=== PATIENT | female | born 1935 | race Caucasian/White ===

== ENCOUNTER → 2017-06-02 | Outpatient (CLI) | payer MEDICARE, OTHER ==
[~2017-06-02] MED LIST: ACETAMINOPHEN-1 EAC1 PO; ALLOPURINOL 30300 M1 PO; ALLOPURINOL 30300 M2 PO; APAP500 PO; ASPIR 8181 MG PO; ASPIRIN EC325 M1 PO; ASPIRIN EC81 M1 PO; ASPIRIN325 PO; CEFTIN 250 MG250 MG PO; CEFTIN500 MG PO; CRESTOR10 MG PO; EMETROL ORAL S118 ML PO; FOLIC ACID 40400 MC1 PO; FUROSEMIDE 40 M40 MG PO; IMDUR 60 MG TAB60 M1 PO; IRON PO; K-DUR 20 MEQ T20 MEQ PO; LANSOPRAZOLE30 MG PO; LASIX 40 MG TAB40 M2 PO; LASIX 40 MG TAB40 MG PO; MACROBID 100 M100 M1 PO; MACROBID 100 M100 M2 PO; MACROBID 100 M100 M3 PO; MECLIZINE HCL12.5 MG PO; NITRO-TIME2.5 MG PO; NITROGLYCERIN0.3 MG SL; OXYCODONE HCL 55 MG PO; PERCOCET 5-3251 EACH PO; PLAVIX 75 MG TA75 M1 PO; PLAVIX 75 MG TA75 MG PO; POTASSIUM20 PO; PREVACID 30MG C30 M1 PO; PREVACID30 MG PO; PROLOPRIM100 MG PO; SENNA PO; TOPROL XL100 MG PO; TOPROL XL50 MG PO; TRAMADOL 50 MG50 MG PO; TRANSDERM-SCO1 PATC1 TD; VALIUM5 MG PO; XARELTO15 MG PO; ZESTRIL5 MG PO; ZOFRAN4 MG PO; ZYLOPRIM300 MG PO
== END ==
LOC: M.RAD 16:44
DX: M43.8X4 Other specified deforming dorsopathies, thoracic region (principal); I70.0 Atherosclerosis of aorta; N39.0 Urinary tract infection, site not specified; R07.81 Pleurodynia; M54.89 Other dorsalgia; Z98.890 Other specified postprocedural states

== ENCOUNTER 2018-05-02 13:43 | Inpatient (IN) | payer MEDICARE, OTHER ==
[~2018-05-02] VITALS: Ht 160 cm; Wt 61.7 kg
[~2018-05-02 13:43] MED LIST changes: -FUROSEMIDE 40 M40 MG PO
[2018-05-02 13:52] VITALS: BP 165/80
[2018-05-02] MEDS ORDERED: AMOXICILLIN 50500 MG PO (14:03)
[2018-05-02 14:23] LABS: ABSOLUTE EOSINOPHILS 0.2 thou/uL (0.0-0.7); ABSOLUTE LYMPHOCYTES 1.4 thou/uL (0.8-5.3); ABSOLUTE NEUTROPHILS 4.7 thou/uL (1.6-8.1); BASOPHILS 0.4 %; EOSINOPHILS 3.3 %; HEMATOCRIT 29.4 % (37.0-47.0); HEMOGLOBIN 9.7 gm/dL (12.0-15.0); LYMPHOCYTES 19.2 %; MCV 93.9 fL (80.0-100.0); MPV 8.8 fl. (7.2-11.1); NUCLEATED RBCS 0 /100WBC; PLATELET COUNT* 276 thou/uL (150-400); POLYS 64.1 %; RBC 3.13 mil/uL (4.20-5.00); RDW-CV 13.9 % (10.5-14.5); WBC 7.4 thou/uL (4.0-11.0)
[2018-05-02 14:33] LABS: ANION GAP 12 mmol/L (7-16); BUN 17 mg/dL (7-18); CALCIUM 8.8 mg/dL (8.5-10.1); CHLORIDE 102 mmol/L (98-107); CO2 24 mmol/L (21-32); CREATININE 1.2 mg/dL (0.6-1.3); GLUCOSE 105 mg/dL (70-99); POTASSIUM 3.4 mmol/L (3.5-5.1); SODIUM 138 mmol/L (136-145)
[2018-05-02 14:40] LABS: ALBUMIN 2.9 g/dL (3.4-5.0); ALKALINE PHOSPHATASE 113 U/L (46-116); SGOT 19 U/L (15-37); SGPT 11 U/L (30-65); TOTAL BILIRUBIN 0.4 mg/dL (<0.1-1.0); TROPONIN-I LEVEL <0.06 ng/mL (<0.06)
[2018-05-02 15:41] LABS: APTT 41.8 Seconds (25.0-31.3); INR 1.2; PROTIME 12.7 Seconds (9.20-11.50)
[2018-05-02 15:47] LABS: BE -2.5 mmol/L (-2 to +3); HCO3 19.9 mmol/L (22.0-26.0); PCO2 27.4 mmHg (35.0-45.0); PO2 67.1 mmHg (75.0-100.0); pH 7.478 (7.340-7.450)
[2018-05-02 16:44] LABS: URINE BILIRUBIN NEGATIVE (Negative); URINE BLOOD 3+ (Negative); URINE CLARITY SL CLOUDY; URINE COLOR STRAW; URINE GLUCOSE-RANDOM NEGATIVE (Negative); URINE KETONES NEGATIVE (Negative); URINE NITRITE-REFLEX NEGATIVE (Negative); URINE PROTEIN 2+ (Negative); URINE SPECIFIC GRAVITY >= 1.030 (1.005-1.030); URINE UROBILINOGEN 0.2 E.U./dl (0.2-1.0)
[2018-05-02 16:46] LABS: URINE LEUKOCYTES-REFLEX 2+ (Negative)
[2018-05-02 17:00] VITALS: BP 166/71
[2018-05-02 17:06] VITALS: BP 155/71
[2018-05-02 17:15] LABS: BACTERIA-REFLEX >30 Many /HPF (None Seen); CASTS None Seen /LPF (None Seen); CRYSTALS None Seen /LPF (None Seen); SQUAMOUS NONE SEEN /LPF (0-3); URINE RBC >20 Many /HPF (0-2); URINE WBC-REFLEX >25 Many /HPF (0-5)
[2018-05-02 20:00] VITALS: BP 147/76
--- NOTE | 2018-05-02 20:00 | NUR ---
PT ADMITED TO TELE UNDER THE CARE OF DR MONTANO. PT IS A&O X4 CALM AND COOPERATIVE. PT DENIES C/O PAIN OR DISTRESS VSS AND TRACING ST ON THE MONITOR. PT ORIENTED TO UNIT AND SERVICES, FOOD AND DRINK OFFERED. URINALRY CATHETER INSERTED PER DR MONTANO'S ORDERS FOR IMMOBILITY. 16F WITH A 10 CC BULB. NURSING ADMISSION ASSESSMENT COMPLETED AND DOCUMENTED. HOURLY ROUNDS STARTED, NURSING WILL CONTINUE TO MONITOR.
[2018-05-03] VITALS: BP 127/62
[2018-05-03 04:00] VITALS: BP 125/78
--- NOTE | 2018-05-03 05:00 | NUR ---
PATIENT PARTIALLY PROGRESSING TOWARDS GOALS: PATIENT ABLE TO SIT ON SIDE OF BED FOR PART OF SHIFT WITH MINIMAL SHORTNESS OF AIR. PATIENT REMAINS ON ROOM AIR WITH SATS >92%. PATIENT DENIES PAIN AND DISCOMFORT. EDWARDS IN PLACE TO DD. HOURLY ROUNDING OBSERVED. CALL LIGHT WITHIN REACH
[2018-05-03 09:30] VITALS: BP 136/57
--- NOTE | 2018-05-03 11:42 | NUR ---
Pt is A&O. Resides at home alone. Pt continues to prepare her own meals. Pt's neighbor cleans her home every 2 weeks and Pt's sons provide transportation to appts and to run errands. Pt uses a walker while in the house and a cane in the community. Pt also has a transport chair that she reports using more frequently. No home o2. Hx of HH, but does not recall the name of the agency. No hx of skilled. Pt's goal is [place]. No needs anticipated. Following for disposition.
[2018-05-03 12:00] VITALS: BP 153/108
[2018-05-03 13:36] LABS: CHOLESTEROL 194 mg/dL (<200); HDL CHOLESTEROL 50 mg/dL (>40); LDL CHOLESTEROL 130 mg/dL (<100); SERUM ASSESSMENT Clear; TC:HDL 3.9 Ratio (Not establshd); TRIGLYCERIDE 70 mg/dL (<150); VLDL 14 mg/dL (<40)
[2018-05-03 13:53] LABS: CALCIUM 8.9 mg/dL (8.5-10.1); CREATININE 1.3 mg/dL (0.6-1.3); POTASSIUM 3.7 mmol/L (3.5-5.1)
--- NOTE | 2018-05-03 14:13 | 2DMMODE ---
[place] [address] 2 D/M-MODE ECHOCARDIOGRAM Name: COURTNEY NYE Room: [address] IN [facility]#: [id number] Admission: 05/02/18 Attend Phys: Jan Sorto, Discharge: Date of : 31 Date of Service: 05/03/18 1412 Report #: [id number] THIS REPORT FOR: //name// APPROVED REPORT Study performed: 05/03/2018 10:36:39 EXAM: Comprehensive 2D, Doppler, and color-flow Echocardiogram Patient Location: In-Patient Room #: [facility] Status: routine BSA: 1.63 HR: 83 bpm BP: 125/78 mmHg Rhythm: NSR Other Information Study Quality: Good Indications Dyspnea 2D Dimensions IVSd: 10.22 (7-11mm) LVOT Diam: 18.68 (18-24mm) LVDd: 43.22 mm PWd: 8.77 (7-11mm) Ascending Ao: 33.06 (22-36mm) LVDs: 33.73 (25-40mm) Aortic Root: 28.27 mm Volumes Left Atrial Volume (Systole) LA ESV Index: 29.30 mL/m2 Aortic Valve AoV Peak Bebeto.: 1.11 m/s AO Peak Gr.: 4.92 mmHg LVOT Max P.96 mmHg AO Mean Gr.: 2.91 mmHg LVOT Mean P.95 mmHg LVOT Max V: 0.70 m/s AO V2 VTI: 25.14 cm LVOT Mean V: 0.45 m/s HOLLIS (VTI): 1.68 cm2 LVOT V1 VTI: 15.41 cm Mitral Valve E/A Ratio: 1.64 MV Decel. Time: 145.04 ms MV E Max Bebeto.: 1.09 m/[place] [address] 2 D/M-MODE ECHOCARDIOGRAM Name: COURTNEY NYE Room: [address] IN [facility]#: [id number] Admission: 05/02/18 Attend Phys: Jan Sorto, Discharge: Date of : 31 Date of Service: 05/03/18 1412 Report #: [id number] MV PHT: 42.06 ms MVA (PHT): 5.23 cm2 TDI E/Lateral E': 13.63 E/Medial E': 18.17 Medial E' Bebeto.: 0.06 m/s Lateral E' Bebeto.: 0.08 m/s Pulmonary Valve PV Peak Bebeto.: 0.64 m/s PV Peak Gr.: 1.65 mmHg Tricuspid Valve RAP Estimate: 5.00 mmHg TR Peak Gr.: 32.44 mmHg RVSP: 37.00 mmHg PA Pressure: 37.00 mmHg Left Ventricle The left ventricle is normal size. There is global hypokinesis. There is normal left ventricular wall thickness. Left ventricular systolic function is mild to moderately decreased. LVEF is 35-40%. Severe diastolic dysfunction is present (restrictive filling). Right Ventricle The right ventricle is normal size. The right ventricular systolic function is normal. Atria Left atrium is mildly dilated. Right atrium is mildly dilated. Aortic Valve The aortic valve is normal in structure. Trace aortic regurgitation. There is no aortic valvular stenosis. Mitral Valve The mitral valve is normal in structure. Moderate mitral regurgitation. No evidence of mitral valve stenosis. Tricuspid Valve The tricuspid valve is normal in structure. Mild tricuspid regurgitation. Mild pulmonary hypertension. Pulmonic Valve The pulmonary valve is normal in structure. Mild [place] [address] 2 D/M-MODE ECHOCARDIOGRAM Name: MELANIE MOLINACOURTNEY Micheal Room: [address]#: [id number] Admission: 05/02/18 Attend Phys: Jan Sorto, Discharge: Date of : 31 Date of Service: 05/03/18 1412 Report #: [id number] Great Vessels The aortic root is normal in size. IVC is normal in size and collapses >50% with inspiration. Pericardium There is no pericardial effusion. <Conclusion> The left ventricle is normal size. There is normal left ventricular wall thickness. Left ventricular systolic function is mild to moderately decreased. LVEF is 35-40%. Severe diastolic dysfunction is present (restrictive filling). Left atrium is mildly dilated. Right atrium is mildly dilated. Mild tricuspid regurgitation. Mild pulmonary hypertension. IVC is normal in size and collapses >50% with inspiration. <ELECTRONICALLY SIGNED> By: Velasquez Bhagat MD, FACC 05/03/18 141 11 11 Velasquez Bhagat MD, FACC /INF
--- NOTE | 2018-05-03 16:19 | EKG ---
[place] [address] ELECTROCARDIOGRAM REPORT Name: COURTNEY NYE Room: [address] ADM IN [facility]#: [id number] Admission: 05/02/18 Attend Phys: Jan Sorto MD Discharge: Date of : 31 Report #: [id number] THIS REPORT FOR: //name// 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 : 1935 Requested By: Alicia Todd Order Number: [id number] MD: Velasquez Bhagat Measurements Intervals [place] Rate: 88 P: 51 MS: 52 QRS: 69 QRSD: 99 T: 94 QT: 396 QTc: 480 Interpretive Statements Sinus rhythm Short MS interval Probable left atrial enlargement Borderline low voltage, extremity leads Nonspecific repol abnormality, diffuse leads Compared to ECG 06/15/2016 16:51:22 Short MS interval now present Ventricular premature complex(es) no longer present Electronically Signed On 05-03-2018 16:19:24 BASEBALL CLUB MANAGER by Velasquez Bhagat [email or web address] <ELECTRONICALLY SIGNED> By: Velasquez Bhagat MD, FACC 05/03/18 1619 1412 1412 Velasquez Bhagat MD, FACC /EPI
[2018-05-03 16:39] VITALS: BP 140/71
--- NOTE | 2018-05-03 17:36 | CON ---
[address] [address] CONSULTATION Name: COURTNEY NYE Room: [address] [facility]#: [id number] Admission: 05/02/18 Attend Phys: Jan Sorto MD Discharge: Date of : 31 Report #: [id number] THIS REPORT FOR: //name// CC: Jim Sorto INDICATION: Acute on chronic combined heart failure. HISTORY OF PRESENT ILLNESS: The patient is an 82-year-old white female status post coronary artery bypass grafting in 2004. She had subsequent percutaneous coronary intervention in 2006. She has preserved left ventricular systolic function with an EF based on echo of approximately 45%-50%. She was admitted to the hospital with progressive shortness of breath. Her NT-proBNP is elevated consistent with acute heart failure. Chest x-ray suggests mild pulmonary edema. She has swelling of her left lower extremity, which was the leg used for her bypass surgery. She denies orthopnea. She does have progressive dyspnea on exertion. She has occasional episodes of chest discomfort. Her troponins here have all been unremarkable. EKG shows sinus rhythm with nonspecific ST-segment depression in the anterolateral leads. No ST elevation identified. Telemetry shows occasional episodes of nonsustained ventricular tachycardia that are asymptomatic. She is without other cardiac complaint at this time. PAST MEDICAL HISTORY: 1. Coronary artery disease. 2. Hypertension. 3. Hyperlipidemia with statin intolerance, although she is tolerating Crestor once weekly. 4. GERD. 5. History of cerebrovascular accident remotely. 6. History of pulmonary embolus approximately 2 years ago. PAST SURGICAL HISTORY: 1. Appendectomy. 2. Tonsillectomy. 3. Childbirth x 6. 4. Coronary artery bypass grafting x 3 on 03/2005. 5. Percutaneous coronary intervention in 03/2005. 6. Percutaneous coronary intervention in 2006. 7. Dental extraction. 8. Cholecystectomy. 9. Bilateral lens implant, cataract removal. HOME MEDICATIONS: Plavix 75 mg daily, Toprol-XL 125 mg at bedtime, Nitrostat p.r.n., Prevacid 30 mg daily, furosemide 40 mg p.o. daily, allopurinol 300 mg daily, aspirin 325 mg daily, lisinopril 5 mg daily, amoxicillin 500 [place] [address] CONSULTATION Name: COURTNEY NYE Room: [address]#: [id number] Admission: 05/02/18 Attend Phys: Jan Sorto MD Discharge: Date of : 31 Report #: [id number] tablet daily, Imdur 60 mg b.i.d., Xarelto 20 mg daily. ALLERGIES: VICODIN, LEVOFLOXACIN, MORPHINE, SULFAS, MEDICAL INTOLERANCE TO STATINS. FAMILY HISTORY: Noncontributory. SOCIAL HISTORY: The patient does not smoke. She does not drink alcohol. REVIEW OF SYSTEMS: Noncontributory. PHYSICAL EXAMINATION: VITAL SIGNS: Blood pressure 136/57, pulse 72 and regular. GENERAL: This is a thin elderly white female in no distress. Mood and affect appropriate. HEENT: The patient is wearing glasses. Extraocular muscles intact. Mucous membranes are moist. NECK: Shows jugular venous distention. CHEST: Reveals rales bilaterally. CARDIOVASCULAR: Reveals a regular rhythm without gallop or murmur. ABDOMEN: Reveals normal bowel sounds present. EXTREMITIES: Show mild edema of the left lower extremity. Right lower extremity is free of edema. SKIN: Warm and dry. IMPRESSION AND RECOMMENDATION: 1. Acute on chronic combined heart failure. The patient is improving with IV Lasix. Would continue b.i.d. Lasix at this time and follow labs and I's and O's carefully. She may need a larger dose of Lasix when she is discharged. She does report not paying attention to salt restriction. 2. Coronary artery disease, presently stable. She is not having any angina. 3. Remote history of pulmonary embolus for which she is taking Xarelto. She has completed a course of novel anticoagulant for pulmonary embolus. I do not believe she needs to continue this. 4. Remote history of cerebrovascular accident. The patient was placed on Plavix at that time. She continues on Plavix. She has not had recurrent cerebrovascular accident. 5. Hypertension, adequately controlled on current regimen. 6. Angina. Continue p.r.n. nitrates. 7. Hyperlipidemia. The patient is tolerating once weekly Crestor. We will check fasting lipid profile [place] [address] CONSULTATION Name: COURTNEY NYE Room: [address] [place] [facility]#: [id number] Admission: 05/02/18 Attend Phys: Jan Sorto MD Discharge: Date of : 31 Report #: [id number] 8. Nonsustained ventricular tachycardia. No specific treatment at this time. We will continue to observe. <ELECTRONICALLY SIGNED> By: Velasquez Bhagat MD, FACC 05/03/18 1736 1256 [id number] Bhagat MD, FACC /nt
--- NOTE | 2018-05-03 18:36 | NUR ---
ASSUMED PT CARE AT 0700 PT IS ALERT AND ORIENTED X 4 PT DENIES PAIN INCLUDING CHEST PAIN PT DENIES SOA, PT IS SR ON THE MONITOR, PT SON INQUIRING ABOUT NITRO TABS SON WANTS TO GIVE PT OWN SUPPLY WITHOUT ORDER THIS NURSE EDUCATED PT AND SON ON HOSPITAL POLICY AND THAT THIS NURSE WILL CALL PHYSICIAN FOR ORDER PT SON BECAME UPSET THIS NURSE REEDUCATED THAT PHYSICIAN WILL BE CALLED FOR ORDER FOR NITRO SON STATES UNDERSTANDING, PT IS UP WITH ASSIST X PT IS A FALL RISK BED ALARM IS ON, PT HAS EDWARDS CRITICAL I&0 PT ON 2000ML FLUID RESTRICTION, PT IV REPLACED, PT C/O ARM DISCOMFORT FROM MULTIPLE STICKS PAGED PHYSICIAN FOR TYLENOL AWAITING CALL BACK GAVE PT SCHEDULED ASPIRIN, WILL CONTINUE TO MONITOR
[2018-05-03 20:15] VITALS: BP 153/83
[2018-05-04] VITALS: BP 161/79
[2018-05-04 04:00] VITALS: BP 149/73
--- NOTE | 2018-05-04 05:16 | NUR ---
PT CARE ASSUMED AT 1930. SAT MAINTAINED IN 1L NC. ALERT AND ORIENTED X4. CALL LIGHT WITHIN REACH AND BED IN LOW POSITIION. PT STATED CAN'T SLEEP, LOT GOING ON MY MIND. MEDICATION GIVEN PER EMAR. REFUSED INSULIN, EXPLAINED ABOUT THE NEED OF IT BUT WANTS TO TALK WITH TODAY ABOUT IT. HOURLY ROUNDING DONE FOR PT SAFETY.
[2018-05-04 05:30] LABS: HEMOGLOBIN 9.5 gm/dL (12.0-15.0); MCH 31.7 pg (26.0-34.0); MCV 93.2 fL (80.0-100.0); RBC 3.01 mil/uL (4.20-5.00); RDW-CV 13.8 % (10.5-14.5)
[2018-05-04 05:43] LABS: ANION GAP 8 mmol/L (7-16); BUN 25 mg/dL (7-18); CALCIUM 8.8 mg/dL (8.5-10.1); CHLORIDE 98 mmol/L (98-107); CO2 26 mmol/L (21-32); CREATININE 1.4 mg/dL (0.6-1.3); GLUCOSE 147 mg/dL (70-99); MAGNESIUM 1.9 mg/dL (1.8-2.4); SODIUM 132 mmol/L (136-145); TROPONIN-I LEVEL <0.06 ng/mL (<0.06)
[2018-05-04 05:44] LABS: POTASSIUM 4.7 mmol/L (3.5-5.1)
[2018-05-04 10:00] VITALS: BP 154/85
[2018-05-04 12:17] VITALS: BP 147/69
--- NOTE | 2018-05-04 13:48 | NUR ---
ASSUMED PT CARE AT 0700 PT IS ALERT AND ORIENTED X 4 PT DENIES PAIN OR SOA ON 1L/NC, PT IS SR ON THE MONITOR, PT IS UP WITH ASSIST X 1 TO CHAIR, PT IV STERIODS DECREASED PT WILL START PO ANTIBIOTICS TOMORROW GAVE LST DOSES OF IV ANTIBIOTICS, PT SPOKE WITH CARDIOLOGY REGARDING MEDICATION CHANGES HAS BETTER UNDERSTANDING PURPOSE MEDS WERE CHANGED, PT SPOKE WITH HOSPITALSIT REGARDING INSULIN WHICH WILL BE GIVEN FOR BLOOD SUGAR ABOVE 280, PT WORKED WITH PHYSICIAL THERAPY [facility], WILL CONTINUE TO MONITOR
[2018-05-04 16:07] VITALS: BP 130/56
[2018-05-04 20:20] VITALS: BP 118/76
[2018-05-05] VITALS: BP 105/40; BP 146/68
[2018-05-05 04:00] VITALS: BP 133/61
--- NOTE | 2018-05-05 05:07 | NUR ---
PT CARE ASSUMED AT 1930. SAT MAINTAINED IN 1L NC. ALERT AND ORIENTED X4. CALL LIGHT WITHIN REACH AND BED IN LOW POSITION. DENIES ANY SOB AND CHEST PAIN. HOURLY ROUNDING DONE FOR PT SAFETY.
[2018-05-05 05:43] LABS: CALCIUM 8.2 mg/dL (8.5-10.1); CREATININE 1.4 mg/dL (0.6-1.3); POTASSIUM 4.8 mmol/L (3.5-5.1)
[2018-05-05 08:00] VITALS: BP 164/80
[2018-05-05 12:00] VITALS: BP 177/82
[2018-05-05] MEDS ORDERED: NITROGLYCERIN0.4 MG SUBLING (12:18)
[2018-05-05] MEDS ORDERED: LASIX 40 MG TAB40 M1 PO (12:18)
[2018-05-05] MEDS ORDERED: PREDNISONE 20 M20 MG PO (12:18)
[2018-05-05] MEDS ORDERED: CEFDINIR300 MG PO (12:18)
[2018-05-05] MEDS ORDERED: ASPIR 8181 MG PO (12:18)
[2018-05-05] MEDS ORDERED: IMDUR 60 MG TAB60 M1 PO (12:18)
--- NOTE | 2018-05-05 13:33 | NUR ---
Pt discharging to home today with [facility]. Faxed dc orders.
--- NOTE | 2018-05-05 14:26 | NUR ---
RE: CHF MEDICATION EDUCATION. MET WITH PT TO DISCUSS HEART FAILURE MEDICATION. REVIEW FOCUSED ON LISINOPRIL, FUROSEMIDE AND ISOSORBIDE DINITRATE. REVIEWED RATIONALE FOR THERAPY AND IMPORTANCE OF COMPLIANCE OF PRESCRIBED REGIMEN. DISCUSSED SIDE EFFECTS AND MANAGEMENT STRATEGIES. LEFT MEDICATION INFORMATION SHEET WITH PATIENT. PROVIDED PHARMACY CONTACT INFORMATION FOR ANY FURTHER QUESTIONS OR ISSUES. THANK YOU.
[2018-05-05] MEDS ORDERED: FUROSEMIDE 40 M40 MG PO (14:52)
--- NOTE | 2018-05-05 15:52 | NUR ---
CALLED PTS FORENSIC INVESTIGATOR [facility] . THEY ARE UNABLE TO SET AN APPT TILL MAY. CALLED DR COWAN PTS PRIMARY CARE DOCTOR TO [facility] APPT. TC WHEN TIRE BUSTER ANSW AND FORWARDED ME TO
[2018-05-05 17:00] VITALS: BP 165/73
--- NOTE | 2018-05-05 17:05 | NUR ---
ASSUMED CARE OF PT THIS AM ASESSED AND DOCUMENTED. PT D/C'D TO HOME. ALL CONSULTS OK WITH D/C. EDUCATION GIVEN RE FOLLOW-UPS, MEDICATIONS AND DRS ORDERS. DR REINA OFFICE RET CALL PT HAS AN APPT Wednesday. SCRIPTS GIVEN. IV AND CARDIAC MONITER D/C'D. ALL BELONGINGS PACKED UP AND LEFT WITH PT ACCOMPANIED BY SON AND STAFF.
== END 2018-05-05 15:20 | disposition home health service (06) | DRG 291 ==
LOC: M.ERS 13:43 → M.TBA-ER 15:38 → M.2W 15:38
PROVIDERS: Internal Medicine; Internal Medicine Cardiovascular Disease; Personal Emergency Response Attendant; ADMIT Internal Medicine
DX: I11.0 Hypertensive heart disease with heart failure (principal); J18.9 Pneumonia, unspecified organism; I47.2 Ventricular tachycardia; I50.43 Acute on chronic combined systolic (congestive) and diastolic (congestive) heart failure; I25.10 Atherosclerotic heart disease of native coronary artery without angina pectoris; K21.9 Gastro-esophageal reflux disease without esophagitis; E78.5 Hyperlipidemia, unspecified; Z66 Do not resuscitate; Z90.49 Acquired absence of other specified parts of digestive tract; Z95.1 Presence of aortocoronary bypass graft; I25.2 Old myocardial infarction; Z95.5 Presence of coronary angioplasty implant and graft; Z98.42 Cataract extraction status, left eye; Z98.41 Cataract extraction status, right eye; Z86.73 Personal history of transient ischemic attack (TIA), and cerebral infarction without residual deficits; Z88.6 Allergy status to analgesic agent; Z88.1 Allergy status to other antibiotic agents; Z88.2 Allergy status to sulfonamides; Z86.711 Personal history of pulmonary embolism; Z98.818 Other dental procedure status; Z79.82 Long term (current) use of aspirin; Z79.899 Other long term (current) drug therapy

== ENCOUNTER 2018-05-19 11:31 | Inpatient (IN) | payer MEDICARE, OTHER ==
[~2018-05-19] VITALS: Ht 154.9 cm; Wt 61.7 kg
[~2018-05-19 11:31] MED LIST changes: -ALLOPURINOL 30300 M2 PO; +AMOXICILLIN 50500 MG PO; +CEFDINIR300 MG PO; +FUROSEMIDE 40 M40 MG PO; +LASIX 40 MG TAB40 M1 PO; +NITROGLYCERIN0.4 MG SUBLING; +PREDNISONE 20 M20 MG PO
[2018-05-19 11:40] VITALS: BP 132/50
[2018-05-19 12:00] LABS: ABSOLUTE EOSINOPHILS 0.1 thou/uL (0.0-0.7); ABSOLUTE MONOCYTES 1.2 thou/uL (0.0-1.2); ABSOLUTE NEUTROPHILS 6.2 thou/uL (1.6-8.1); BASOPHILS 0.4 %; EOSINOPHILS 0.9 %; HEMATOCRIT 31.8 % (37.0-47.0); HEMOGLOBIN 10.7 gm/dL (12.0-15.0); LYMPHOCYTES 11.5 %; MCH 30.8 pg (26.0-34.0); MCHC 33.7 g/dL (28.0-37.0); MCV 91.3 fL (80.0-100.0); MONOCYTES 14.2 %; NUCLEATED RBCS 0 /100WBC; PLATELET COUNT* 195 thou/uL (150-400); RBC 3.48 mil/uL (4.20-5.00); RDW-CV 14.4 % (10.5-14.5); WBC 8.5 thou/uL (4.0-11.0)
[2018-05-19 12:06] LABS: ANION GAP 11 mmol/L (7-16); BUN 57 mg/dL (7-18); CHLORIDE 91 mmol/L (98-107); CO2 27 mmol/L (21-32); CREATININE 2.2 mg/dL (0.6-1.3); GLUCOSE 154 mg/dL (70-99); SODIUM 129 mmol/L (136-145)
[2018-05-19 12:14] LABS: APTT 26.2 Seconds (25.0-31.3)
[2018-05-19 12:18] LABS: ALBUMIN 3.1 g/dL (3.4-5.0); ALKALINE PHOSPHATASE 80 U/L (46-116); NT-PRO BRAIN NAT PEPTIDE 1460 pg/mL (<300); SGOT 18 U/L (15-37); SGPT 19 U/L (30-65); TOTAL BILIRUBIN 0.4 mg/dL (<0.1-1.0); TOTAL PROTEIN 6.7 g/dL (6.4-8.2); TROPONIN-I LEVEL <0.06 ng/mL (<0.06)
[2018-05-19 14:45] VITALS: BP 99/42
[2018-05-19 16:00] VITALS: BP 99/39
[2018-05-19 20:20] VITALS: BP 110/40
[2018-05-20] VITALS (7 sets, daily range): BP systolic 98–121; BP diastolic 39–47
[2018-05-20 01:12] LABS: URINE BILIRUBIN NEGATIVE (Negative); URINE BLOOD NEGATIVE (Negative); URINE CLARITY CLEAR; URINE COLOR YELLOW; URINE GLUCOSE-RANDOM NEGATIVE (Negative); URINE KETONES NEGATIVE (Negative); URINE NITRITE-REFLEX NEGATIVE (Negative); URINE PROTEIN NEGATIVE (Negative); URINE UROBILINOGEN 0.2 E.U./dl (0.2-1.0)
[2018-05-20 01:15] LABS: URINE LEUKOCYTES-REFLEX 3+ (Negative)
[2018-05-20 01:25] LABS: BACTERIA-REFLEX 1-9 Few /HPF (None Seen); CRYSTALS None Seen /LPF (None Seen); HYALINE CASTS 0-3 Few /LPF (None Seen); SQUAMOUS >10 Many /LPF (0-3); TRANSITIONAL EPITHEL CELL 4-10 Moderate /LPF (None Seen); URINE RBC None Seen /HPF (0-2); URINE WBC-REFLEX >25 Many /HPF (0-5); WBC CLUMPS Few (None Seen)
[2018-05-20 04:52] LABS: ABSOLUTE EOSINOPHILS 0.1 thou/uL (0.0-0.7); ABSOLUTE LYMPHOCYTES 1.5 thou/uL (0.8-5.3); ABSOLUTE MONOCYTES 1.3 thou/uL (0.0-1.2); ABSOLUTE NEUTROPHILS 5.4 thou/uL (1.6-8.1); BASOPHILS 0.4 %; EOSINOPHILS 1.4 %; HEMATOCRIT 26.3 % (37.0-47.0); HEMOGLOBIN 9.2 gm/dL (12.0-15.0); LYMPHOCYTES 17.6 %; MCH 31.9 pg (26.0-34.0); MCV 91.1 fL (80.0-100.0); MONOCYTES 15.9 %; MPV 8.9 fl. (7.2-11.1); NUCLEATED RBCS 0 /100WBC; PLATELET COUNT* 145 thou/uL (150-400); POLYS 64.7 %; RBC 2.89 mil/uL (4.20-5.00); RDW-CV 14.4 % (10.5-14.5); WBC 8.3 thou/uL (4.0-11.0)
[2018-05-20 05:09] LABS: CALCIUM 8.3 mg/dL (8.5-10.1); CREATININE 2.1 mg/dL (0.6-1.3); MAGNESIUM 2.3 mg/dL (1.8-2.4); POTASSIUM 4.5 mmol/L (3.5-5.1)
--- NOTE | 2018-05-20 14:51 | EKG ---
[place] [address] ELECTROCARDIOGRAM REPORT Name: COURTNEY NYE Room: [address] ADM IN [facility]#: [id number] Admission: 05/19/18 Attend Phys: Abdon Dye MD Discharge: Date of : 31 Report #: [id number] THIS REPORT FOR: //name// [facility] ED Test Date: 2018-05-19 Test Time: 11:44:52 Pat Name: COURTNEY MOLINA Department: Room: [facility] Gender: F Roll Capper: Trevon FABIAN : 1935 Requested By: Moiz Ford Order Number: [id number] MD: Jared Munguia Measurements Intervals [place] Rate: 69 P: 78 AK: 176 QRS: 46 QRSD: 117 T: 84 QT: 386 QTc: 414 Interpretive Statements Sinus rhythm Ventricular premature complex Nonspecific intraventricular conduction delay Nonspecific repol abnormality, lateral leads Compared to ECG 05/02/2018 14:12:27 Ventricular premature complex(es) now present Intraventricular conduction delay now present Short [place] interval no longer present Electronically Signed On 05-20-2018 14:51:34 IMPORT EXPORT CLERK by Jared Munguia [email or web address] <ELECTRONICALLY SIGNED> By: Jared Munguia MD, FACC 05/20/18 1451 1144 1144 Jared Munguia MD, FACC /EPI
[2018-05-21] VITALS: BP 113/40
[2018-05-21 04:00] VITALS: BP 118/39
[2018-05-21 05:24] LABS: ABSOLUTE BASOPHILS 0.1 thou/uL (0.0-0.2); ABSOLUTE EOSINOPHILS 0.2 thou/uL (0.0-0.7); ABSOLUTE LYMPHOCYTES 1.5 thou/uL (0.8-5.3); ABSOLUTE MONOCYTES 1.2 thou/uL (0.0-1.2); ABSOLUTE NEUTROPHILS 4.2 thou/uL (1.6-8.1); BASOPHILS 0.8 %; EOSINOPHILS 2.2 %; HEMATOCRIT 28.1 % (37.0-47.0); HEMOGLOBIN 9.7 gm/dL (12.0-15.0); MCH 31.9 pg (26.0-34.0); MCHC 34.5 g/dL (28.0-37.0); MCV 92.5 fL (80.0-100.0); MONOCYTES 16.8 %; MPV 9.7 fl. (7.2-11.1); NUCLEATED RBCS 0 /100WBC; PLATELET COUNT* 140 thou/uL (150-400); POLYS 59.2 %; RBC 3.04 mil/uL (4.20-5.00); RDW-CV 14.4 % (10.5-14.5); WBC 7.1 thou/uL (4.0-11.0)
[2018-05-21 05:40] LABS: CALCIUM 8.4 mg/dL (8.5-10.1); POTASSIUM 4.5 mmol/L (3.5-5.1)
[2018-05-21 07:50] VITALS: BP 93/41
[2018-05-21 12:00] VITALS: BP 123/48
[2018-05-21 16:00] VITALS: BP 120/62
[2018-05-21 20:00] VITALS: BP 118/48
[2018-05-22] VITALS: BP 122/48
[2018-05-22 04:00] VITALS: BP 110/46
[2018-05-22 08:00] VITALS: BP 109/45
[2018-05-22 19:40] VITALS: BP 147/53
[2018-05-23 00:01] VITALS: BP 126/46
[2018-05-23 04:34] VITALS: BP 122/57
[2018-05-23 05:27] LABS: ABSOLUTE EOSINOPHILS 0.2 thou/uL (0.0-0.7); ABSOLUTE LYMPHOCYTES 1.4 thou/uL (0.8-5.3); ABSOLUTE MONOCYTES 0.7 thou/uL (0.0-1.2); ABSOLUTE NEUTROPHILS 3.3 thou/uL (1.6-8.1); BASOPHILS 0.8 %; EOSINOPHILS 3.9 %; HEMATOCRIT 25.9 % (37.0-47.0); HEMOGLOBIN 9.1 gm/dL (12.0-15.0); LYMPHOCYTES 24.1 %; MCH 32.5 pg (26.0-34.0); MCHC 35.2 g/dL (28.0-37.0); MCV 92.3 fL (80.0-100.0); MONOCYTES 13.2 %; MPV 8.8 fl. (7.2-11.1); NUCLEATED RBCS 0 /100WBC; PLATELET COUNT* 142 thou/uL (150-400); RBC 2.81 mil/uL (4.20-5.00); RDW-CV 14.5 % (10.5-14.5); WBC 5.7 thou/uL (4.0-11.0)
[2018-05-23 06:24] LABS: CALCIUM 8.4 mg/dL (8.5-10.1); CREATININE 1.7 mg/dL (0.6-1.3); POTASSIUM 4.5 mmol/L (3.5-5.1)
[2018-05-23 07:55] VITALS: BP 123/49
[2018-05-23 11:13] VITALS: BP 141/56
[2018-05-23 15:32] VITALS: BP 137/59
[2018-05-23 20:00] VITALS: BP 146/62
[2018-05-24] VITALS: BP 114/57
[2018-05-24 04:00] VITALS: BP 126/54
[2018-05-24 05:25] LABS: CALCIUM 8.6 mg/dL (8.5-10.1); CREATININE 1.6 mg/dL (0.6-1.3); POTASSIUM 4.5 mmol/L (3.5-5.1)
[2018-05-24 08:00] VITALS: BP 149/66
[2018-05-24 12:28] VITALS: BP 130/61
[2018-05-24 14:22] LABS: % SATURATION 20 % (20-39); IRON 45 ug/dL (50-175)
[2018-05-24 16:50] VITALS: BP 139/63
[2018-05-24 20:00] VITALS: BP 153/73
[2018-05-25 00:02] VITALS: BP 122/54
[2018-05-25 04:36] VITALS: BP 124/48
[2018-05-25 08:00] VITALS: BP 123/56
[2018-05-25 12:12] VITALS: BP 129/60
[2018-05-25] MEDS ORDERED: IRON325 PO (12:20)
[2018-05-25] MEDS ORDERED: CARVEDILOL3.125 MG PO (12:21)
[2018-05-25] MEDS ORDERED: THERA M PLUS T1 EAC2 PO (12:23)
[2018-05-25] MEDS ORDERED: VITAMINC500 PO (12:23)
[2018-05-25] MEDS ORDERED: LEVAQUIN 750 M750 MG PO (12:24)
[2018-05-25] MEDS ORDERED: VITAMIN D2000 UNIT PO (12:24)
[2018-05-25 15:45] VITALS: BP 131/57
== END 2018-05-25 16:37 | DRG 177 ==
LOC: M.ERS 11:31 → M.TBA-ER 13:04 → M.2W 13:04
PROVIDERS: Emergency Medicine Emergency Medical Services; ADMIT Family Medicine
DX: J15.6 Pneumonia due to other Gram-negative bacteria (principal); N17.0 Acute kidney failure with tubular necrosis; R65.11 Systemic inflammatory response syndrome (SIRS) of non-infectious origin with acute organ dysfunction; E87.1 Hypo-osmolality and hyponatremia; I50.42 Chronic combined systolic (congestive) and diastolic (congestive) heart failure; N39.0 Urinary tract infection, site not specified; I13.0 Hypertensive heart and chronic kidney disease with heart failure and stage 1 through stage 4 chronic kidney disease, or unspecified chronic kidney disease; I95.9 Hypotension, unspecified; Z96.1 Presence of intraocular lens; N18.3 Chronic kidney disease, stage 3 (moderate); E86.0 Dehydration; K21.9 Gastro-esophageal reflux disease without esophagitis; I25.10 Atherosclerotic heart disease of native coronary artery without angina pectoris; Z88.1 Allergy status to other antibiotic agents; Z88.2 Allergy status to sulfonamides; Z88.8 Allergy status to other drugs, medicaments and biological substances; Z86.711 Personal history of pulmonary embolism; Z95.1 Presence of aortocoronary bypass graft; Z95.5 Presence of coronary angioplasty implant and graft; Z90.49 Acquired absence of other specified parts of digestive tract; Z86.73 Personal history of transient ischemic attack (TIA), and cerebral infarction without residual deficits; Z98.42 Cataract extraction status, left eye; Z98.41 Cataract extraction status, right eye

== ENCOUNTER 2018-09-28 14:11 | Emergency (ER) | payer OTHER ==
[~2018-09-28] VITALS: Ht 157.5 cm; Wt 73.0 kg
[~2018-09-28 14:11] MED LIST changes: +CARVEDILOL3.125 MG PO; +IRON325 PO; +LEVAQUIN 750 M750 MG PO; +THERA M PLUS T1 EAC2 PO; +VITAMIN D2000 UNIT PO; +VITAMINC500 PO
[2018-09-28] MEDS ORDERED: TYLENOL PM EX-1 EACH PO (14:27)
[2018-09-28] MEDS ORDERED: DIFLUCAN150 MG PO (15:18)
[2018-09-28] MEDS ORDERED: LIDOCAINE VISC100 ML TOP (15:18)
[2018-09-28] MEDS ORDERED: NORCO 5-325 TA1 EACH PO (15:19)
[2018-09-28] MEDS ORDERED: ONDANSETRON HCL4 M2 PO (15:19)
[2018-09-28] MEDS ORDERED: ESTRADIOL42.5 GM VAG (15:29)
[2018-09-28 15:54] VITALS: BP 108/66
== END 2018-09-28 15:55 | disposition home or self-care (01) ==
LOC: M.ERS 14:11
DX: N76.0 Acute vaginitis (principal); L53.9 Erythematous condition, unspecified; K21.9 Gastro-esophageal reflux disease without esophagitis; I25.10 Atherosclerotic heart disease of native coronary artery without angina pectoris; Z95.5 Presence of coronary angioplasty implant and graft; Z86.73 Personal history of transient ischemic attack (TIA), and cerebral infarction without residual deficits; Z86.711 Personal history of pulmonary embolism; Z88.2 Allergy status to sulfonamides; Z88.1 Allergy status to other antibiotic agents; Z95.1 Presence of aortocoronary bypass graft; Z88.8 Allergy status to other drugs, medicaments and biological substances; Z90.49 Acquired absence of other specified parts of digestive tract; Z98.890 Other specified postprocedural states

== ENCOUNTER → 2019-04-11 | Outpatient (CLI) | payer OTHER ==
[~2019-04-11] MED LIST changes: +DIFLUCAN150 MG PO; +ESTRADIOL42.5 GM VAG; +LIDOCAINE VISC100 ML TOP; +NORCO 5-325 TA1 EACH PO; +ONDANSETRON HCL4 M2 PO; +TYLENOL PM EX-1 EACH PO
[2019-04-11 09:46] LABS: CREATININE 2.5 mg/dL (0.6-1.3)
== END ==
LOC: M.LAB 09:24 → M.CT 11:00
PROVIDERS: Internal Medicine
DX: N83.292 Other ovarian cyst, left side (principal); I25.811 Atherosclerosis of native coronary artery of transplanted heart without angina pectoris; E78.5 Hyperlipidemia, unspecified; I50.9 Heart failure, unspecified; R53.82 Chronic fatigue, unspecified; R09.89 Other specified symptoms and signs involving the circulatory and respiratory systems; R10.13 Epigastric pain; Z90.49 Acquired absence of other specified parts of digestive tract

== ENCOUNTER → 2020-07-18 | Outpatient (CLI) | payer OTHER ==
[~2020-07-18] MED LIST changes: +ASA81BEC PO; +METHENAMINE HIPP1 G1 PO; +VITAMIN D3100 MCG PO
== END ==
LOC: M.RAD 12:40
PROVIDERS: ATTEND Internal Medicine
DX: M19.072 Primary osteoarthritis, left ankle and foot (principal); M20.42 Other hammer toe(s) (acquired), left foot; M85.872 Other specified disorders of bone density and structure, left ankle and foot